=== PATIENT | female | born 1930 | race Caucasian/White ===

== ENCOUNTER → 2016-11-13 | Outpatient (CLI) | payer MEDICARE, BC ==
[~2016-11-13] MED LIST: ACETAMINOPHEN PO; ADVAIR 100-501 EAC1; ASPIRIN PO; BENTYL20 MG PO; CEFTIN PO; CIPRO250 MG PO; COUMADIN PO; COUMADIN4 MG PO; DEMADEX PO; DEXILANT30 MG PO; FAMOTIDINE PO; HYDROCODON-ACE1 EAC7 PO; K-DUR20 ME1 PO; KEFLEX PO; LANOXIN PO; MACRODANTIN PO; NEXIUM PO; NORCO 5MG-325MG PO; NORCO1 TAB 10/3 PO; PERCOCET; PREVACID PO; PRILOSEC20 MG; PROTONIX PO; SPIRIVA18 MCG INH; TOPROL XL PO; TYLENOL #3 PO; ULTRAM PO; ZOFRAN PO; ZOFRANODT PO
--- NOTE | ~2016-11-13 | CR63 ---
[facility] A Service of [facility] & [facility] RADIOLOGY TEXT RESULTS PATIENT: KAREN FUENZ LOCATION: [facility] : [birth year] UNIT #: [id number] AGE: [address]: Laurel Bronson SEX: F ORDER DR: [id number] [address] [address] [id number] O MR#: [id number] Acc #: [id number] NAME: KAREN FUNEZ : 1930 SEX: F STUDY DATE/TIME: 11/13/2016 1120 UNIT: [facility] ROOM: STUDY DESCRIPTION: CR Chest 2 View Attending Physician: Laurel Bronson A.P.R.N. Referring Physician: Laurel Bronson A.P.R.N. Ordering Physician: Laurel Bronson A.P.R.N. Primary Care Physician: Abad Navarro M.D. MEDICAL IMAGING REPORT This report is preliminary unless electronic signature is present. EXAM Chest 2 views 11/13/2016 1120 hours HISTORY 86-year-old woman with 2-3 days history of shortness of air with dropping oxygen saturation levels. COMPARISON 02/18/2016 FINDINGS Upright PA and lateral views of the chest demonstrate median sternotomy change with stable [id number] cardiomegaly and pacer device. There is left-sided pleural thickening at the apex and lung base with underlying interstitial change appearing stable to slightly increased. There is likely an element of chronic interstitial change. Acute superimposed interstitial edema cannot be excluded. 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 Interstitial markings are stable to slightly increased from 02/18/2016 which could indicate an element of acute superimposed interstitial edema. There is no definite right effusion. Dictated by... Delmy Mchugh M.D. THIS IS AN ELECTRONICALLY VERIFIED REPORT Delmy Mchugh M.D. at 11/13/2016 6:17 PM Aline TD: 11/13/2016 18:09 [facility] A Service of [facility] & [facility] RADIOLOGY TEXT RESULTS PATIENT: KAREN FUNEZ LOCATION: [facility] : 30 UNIT #: [id number] AGE: [address]: Laurel Bronson SEX: F ORDER DR: JOB #: [id number] MEDICAL IMAGING REPORT
[2016-11-13 11:46] LABS: BASOPHIL% 0.7 % (0-2.5); EOSINOPHIL# 0.1 X10e3 (0-0.7); EOSINOPHIL% 1.8 % (0.0-7.0); HEMATOCRIT 32.1 % (35.0-45.0); HEMOGLOBIN 10.4 gm/dL (12.0-16.0); LYMPHOCYTE# 0.6 X10e3 (1.0-3.5); LYMPHOCYTE% 14.9 % (17.0-45.0); MEAN CELL VOLUME 91.1 FL (83-96); MEAN CORPUSCULAR HEMOGLOBIN 29.4 PG (28-34); MEAN CORPUSCULAR HGB CONC 32.3 g/dL (30-36); MEAN PLATELET VOLUME 8.4 FL (6.5-11.5); MONOCYTE# 0.3 X10e3 (0-1.0); MONOCYTE% 6.9 % (3.0-12.0); NEUTROPHIL# 2.9 X10e3 (1.5-7.1); NEUTROPHIL% 75.7 % (40-75); PLATELET COUNT 130 X10e3 (140-420); RED BLOOD COUNT 3.53 X10e (3.90-5.30); RED CELL DISTRIBUTION WIDTH 15.5 % (11.0-15.5); WHITE BLOOD COUNT 3.8 X10e3 (4.0-10.5)
[2016-11-13 11:49] LABS: DIFF IND NO
[2016-11-13 12:02] LABS: ALBUMIN SERUM 3.9 g/dL (3.5-5.0); BILIRUBIN,TOTAL 0.8 mg/dL (0.2-2.0); BUN/CREATININE RATIO 29.09; CREATININE SERUM 1.1 mg/dL (0.6-1.4); GLOM FILT RATE Estimated 50.1 mL/min (>60); MAGNESIUM 2.1 mg/dL (1.6-3.0); POTASSIUM 4.4 mmol/L (3.5-5.1); PROTEIN TOTAL SERUM 7.2 g/dL (6.0-8.3)
== END | disposition home or self-care (01) ==
LOC: SLAB 11:04
PROVIDERS: Nurse Practitioner
DX: R06.00 Dyspnea, unspecified (principal); R91.8 Other nonspecific abnormal finding of lung field; Z79.899 Other long term (current) drug therapy
CPT/HCPCS: 36415; 71020; 80053; 83735; 83880; 85025